=== PATIENT | male | born 1995 | race Caucasian/White ===

== ENCOUNTER 2018-10-10 18:54 | Emergency (ER) | payer BC ==
[~2018-10-10] VITALS: Ht 195.6 cm; Wt 133.3 kg
[2018-10-10 19:02] VITALS: BP 140/90
[2018-10-10] MEDS ORDERED: ibuprofen tablet 400 MG TABLET PO ONE (19:25)
== END 2018-10-10 20:24 | disposition home or self-care (01) ==
LOC: ER 18:56
DX: S93.402A Sprain of unspecified ligament of left ankle, initial encounter (principal); Z91.018 Allergy to other foods; Z98.890 Other specified postprocedural states; X50.1XXA Overexertion from prolonged static or awkward postures, initial encounter; Y93.89 Activity, other specified; Y92.89 Other specified places as the place of occurrence of the external cause; Y99.8 Other external cause status
CPT/HCPCS: 73610; 99284